=== PATIENT | female | born 2000 | race Caucasian/White ===

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

== ENCOUNTER 2018-01-12 19:57 | Emergency (ER) | payer BC ==
[2018-01-12 20:08] VITALS: RESP 16; TEMP 98.8; O2SAT 95
--- NOTE | 2018-01-12 20:11 | EDPHY ---
H & P Stated Complaint: c/o cp on R with intermittent pain to L, some dizziness with standing Time Seen by Provider: 01/12/18 20:11 - Medical/Surgical History Hx Asthma: No Hx Chronic Respiratory Disease: No Hx Diabetes: No Hx Cardiac Disease: No Hx Renal Disease: No Hx Cirrhosis: No Hx Alcoholism: No Hx HIV/AIDS: No Hx Splenectomy or Spleen Trauma: No Other PMH: anemia-iron def., nasal surgery. Bilateral Pulmonary Emboli-neg work up, dep/anxiety/psychosis. - Social History Smoking Status: Current some day smoker Constitutional: Initial Vital Signs Temperature (C) 37.1 C 01/12/18 20:03 Heart Rate 85 01/12/18 20:03 Respiratory Rate 16 01/12/18 20:03 Blood Pressure 122/80 H 01/12/18 20:03 O2 Sat (%) 95 01/12/18 20:03 O2 Delivery Mode Room Air Allergies/Adverse Reactions: amoxicillin Allergy (Intermediate, Verified 01/12/18 20:08) Rash Home Medications: Medication Instructions Recorded ZYRTEC 04/03/16 Abilify 01/12/18 Cephalexin [Keflex (RX)] 500 mg PO TID #30 cap 01/12/18 Lexapro 01/12/18 Wellbutrin 100mg (*) 01/12/18 Medical Decision Making - Diagnostics Imaging: I viewed and interpreted images myself ED Course/Re-evaluation: CHIEF COMPLAINT: Chest pain HISTORY OF PRESENT ILLNESS: The patient is a 17 y/o female with a history of PEs arriving with her mother complaining of intermittent chest pain over the last two years that worsened in the last few days during a cold. She was admitted in March 2016 with non-provoked bilateral PEs while on oral control. Since then she's had baseline intermittent chest pain that is aggravated by exercise. A few days ago she developed sore throat, headache, myalgias, and a fever. During this time her chest pain worsened. Pain is currently located along her lower right chest and stabbing in quality. She has had a couple episodes of mild hemoptysis in the last 24-48 hours. She denies trauma, ear pain, rhinorrhea, recent trauma. She did get a flu vaccination this season. She is not on oral control and does have a Mirena IUD. REVIEW OF SYSTEMS: A 10 point review of systems was performed and is negative with the exception of the elements mentioned in the history of present illness. PHYSICAL EXAM: HR, BP, O2 Sat, RR. Temp noted General Appearance: Alert, well hydrated, appropriate, and non-toxic appearing. Head: Atraumatic without scalp tenderness or obvious injury Eyes: Pupils equal, round, reactive to light and accommodation, EOMI, no trauma , no injection. Ears: Clear bilaterally, no perforation, normal landmarks Nose: Atraumatic, no rhinorrhea, clear. Throat: Pharyngeal erythema with left tonsillar exudates and enlarged tonsils, no lesions, mucus membranes moist. Neck: Supple, nontender, anterior cervical and submandibular lymphadenopathy. Respiratory: No retractions, no distress, no wheezes, and no accessory muscle use. Lungs are clear to auscultation bilaterally. Cardiovascular: Tachycardic regular rate and rhythm, no murmurs, rubs, or gallops. Good capillary refill all extremities. Gastrointestinal: Abdomen is soft, nontender, non-distended, no masses, no rebound, no guarding, no peritoneal signs. Musculoskeletal: Normal active ROM of all extremities, atraumatic. Neurological: Alert, appropriate, and interactive. The patient has non-focal cranial nerves, motor, sensory, and cerebellar exam. Skin: No rashes, good turgor, no nodules on palpation. Past medical history: PE Past surgical history: Noncontributory Family history: Noncontributory Social history: Mother at bedside is an knife edger. [employer] student. Lives in [place]. DIAGNOSTICS/PROCEDURES/CRITICAL CARE TIME: Chest x-ray: negative The 12 lead EKG was interpreted by myself. Sinus mechanism with nonspecific T wave changes similar to prior EKG 2016. See hard copy and/or "tracemaster" electronic copy for interpretation. DIFFERENTIAL DIAGNOSIS: The differential diagnosis for the patient's chest pain included but was not limited to upper respiratory infection, myocardial ischemia, pulmonary embolus, chest wall pain, pleural inflammation, and pulmonary infectious causes. MEDICAL DECISION MAKING: This is a healthy and [id number] 17 y/o female with a history of PEs 2 years ago who presents with worsening baseline chest pain in the setting of recent URI and sore throat symptoms. She has pharyngeal erythema and tonsillar exudate on exam indicating pharyngitis. Lungs are clear. She is mildly tachycardic and afebrile. Presentation likely represents pharyngitis, but will need to rule out PE with d-dimer. Plan for IV, labs, EKG, chest x-ray. D-dimer negative. EKG similar to prior. Chest x-ray normal. Patient is feeling well and is comfortable going home at this point. Will treat with one dose 10mg Decadron here and first dose of PO Keflex. She will be discharged with script for Keflex and standard pharyngitis care and follow up instructions. Return precautions discussed. - Data Points Laboratory Results: Laboratory Results 01/12/18 20:23 01/12/18 20:23 01/12/18 01/12/18 01/12/18 20:23 20:23 20:23 WBC 8.73 10^3/uL 10^3/uL (3.80-9.50) RBC 4.96 10^6/uL 10^6/uL (4.18-5.33) Hgb 14.9 g/dL g/dL (12.6-16.3) Hct 42.8 % % (38.0-47.0) MCV 86.3 fL fL (81.5-99.8) MCH 30.0 pg pg (27.9-34.1) MCHC 34.8 g/dL g/dL (32.4-36.7) RDW 13.2 % % (11.5-15.2) Plt Count 164 10^3/uL 10^3/uL (150-400) MPV 9.0 fL fL (8.7-11.7) Neut % (Auto) 77.8 % H % (39.3-74.2) Lymph % (Auto) 14.7 % L % (15.0-45.0) Lawrence % (Auto) 6.2 % % (4.5-13.0) Eos % (Auto) 0.8 % % (0.6-7.6) Baso % (Auto) 0.3 % % (0.3-1.7) Nucleat RBC Rel Count 0.0 % % (0.0-0.2) Absolute Neuts (auto) 6.79 10^3/uL H 10^3/uL (1.70-6.50) Absolute Lymphs (auto) 1.28 10^3/uL 10^3/uL (1.00-3.00) Absolute Monos (auto) 0.54 10^3/uL 10^3/uL (0.30-0.80) Absolute Eos (auto) 0.07 10^3/uL 10^3/uL (0.03-0.40) Absolute Basos (auto) 0.03 10^3/uL 10^3/uL (0.02-0.10) Absolute Nucleated RBC 0.00 10^3/uL 10^3/uL (0-0.01) Immature Gran % 0.2 % % (0.0-1.1) Immature Gran # 0.02 10^3/uL 10^3/uL (0.00-0.10) PT 16.4 SEC H SEC (12.0-15.0) INR 1.30 H (0.83-1.16) APTT 30.3 SEC SEC (23.0-38.0) D-Dimer < 0.27 ug/mLFEU ug/mLFEU (0.00-0.50) Sodium 140 mEq/L mEq/L (135-145) Potassium 4.0 mEq/L mEq/L (3.5-5.2) Chloride 101 mEq/L mEq/L (97-110) Carbon Dioxide 24 mEq/l mEq/l (22-31) Anion Gap 15 mEq/L mEq/L (8-16) BUN 9 mg/dL mg/dL (7-23) Creatinine 0.8 mg/dL mg/dL (0.6-1.0) Estimated GFR > 60 Glucose 98 mg/dL mg/dL (70-100) Calcium 10.0 mg/dL mg/dL (8.5-10.4) Total Bilirubin 0.8 mg/dL mg/dL (0.1-1.4) Conjugated Bilirubin 0.2 mg/dL mg/dL (0.0-0.5) Unconjugated Bilirubin 0.6 mg/dL mg/dL (0.0-1.1) AST 16 IU/L IU/L (14-46) ALT 29 IU/L IU/L (9-52) Alkaline Phosphatase 80 IU/L IU/L (38-126) Total Protein 7.4 g/dL g/dL (6.3-8.2) Albumin 4.5 g/dL g/dL (3.5-5.0) Lipase 109 IU/L IU/L (23-300) Medications Given: Discontinued Medications Cephalexin HCl (Keflex) 500 mg PO EDNOW ONE PRN Reason: Protocol Stop: 01/12/18 21:07 Last Admin: 01/12/18 21:26 Dose: 500 mg Dexamethasone (Decadron Injection) 10 mg PO EDNOW ONE Stop: 01/12/18 21:07 Last Admin: 01/12/18 21:24 Dose: 10 mg Departure - Departure Disposition: Home, Routine, Self-Care Clinical Impression: Pharyngitis Qualifiers: Pharyngitis/tonsillitis etiology: other specified organisms Qualified Code(s): J02.8 - Acute pharyngitis due to other specified organisms Condition: Good Instructions: Cephalexin (By mouth), Pharyngitis (ED) Additional Instructions: 1. Take Keflex as prescribed for infection. Be sure to complete the entire prescription even if you feel better. 2. Increase fluid intake. 3. Use Tylenol and ibuprofen as directed as needed for pain or fever over the next few days. 4. Follow up with your primary care provider for unimproved symptoms over the next 3-5 days. 5. Return to the ED for severe pain, difficulty breathing, inability to swallow , or other worsening of condition. Referrals: Kendra Camp MD [Primary Care Provider] - As per Instructions Prescriptions: Cephalexin [Keflex (RX)] 500 mg PO TID #30 cap Report Scribed for: Luis Perez Report Scribed by: Kathia Meredith Date of Report: 01/12/18 Time of Report: 20:33
--- NOTE | 2018-01-12 20:14 | CPEKG ---
Heart Rate: 84 RR Interval: 714 P-R Interval: 148 QRSD Interval: 86 QT Interval: 360 QTC Interval: 426 P Telford: 44 QRS T[place]ord: 40 T Wave T[place]ord: 15 EKG Severity - ABNORMAL ECG - EKG Impression: SINUS RHYTHM EKG Impression: NONSPECIFIC T ABNORMALITIES, ANTERIOR LEADS Electronically Signed By: Luis Perez 12-Jan-2018 22:02:59
[2018-01-12 20:38] LABS: PLATELET COUNT 164 10^3/uL (150-400)
[2018-01-12 20:47] LABS: PROTIME(PATIENT) 16.4 SEC (12.0-15.0)
[2018-01-12] MEDS ORDERED: DEXAMETHASONE 10 MG/ML VIAL PO ONE (21:06)
[2018-01-12] MEDS ORDERED: CEPHALEXIN 500 MG CAP PO ONE (21:06)
[2018-01-12 21:30] VITALS: BP 118/76; PULSE 82
== END 2018-01-12 21:30 | disposition home or self-care (01) ==
DX: J02.9 Acute pharyngitis, unspecified (principal); F17.200 Nicotine dependence, unspecified, uncomplicated
CPT/HCPCS: J1100